=== PATIENT | male | born 1960 | race Caucasian/White ===

== ENCOUNTER → 2019-10-15 08:48 | Outpatient (CLI) | payer OTHER, SELFPAY ==
[2019-10-15 10:12] LABS: Erythrocyte Sedimentation Rate 14 mm/hr (0-20)
[2019-10-15 10:14] LABS: Absolute Lymphocyte Count 1.37 X10^3/uL (0.83-4.51); Absolute Neutrophil Count 6.2 X10^3/uL (2.0-7.7); Basophil% 1.2 % (0-1); Eosinophil# 0.02 X10^3/uL; Eosinophils% 0.2 % (0-5); Hematocrit 45.6 % (40-54); Hemoglobin 14.8 g/dL (13.0-16.5); Lymphocyte # 1.37 X10^3/ul (4.0); Lymphocyte % 15.8 % (19-41); Mean Corp Hgb Conc 32.5 g/dL (32-36); Mean Corpuscular Hgb 30.8 pg (27.0-32.0); Mean Corpuscular Volume 94.8 fL (80-94); Mean Platelet Vol. 9.6 fl (6.2-12.0); Monocyte# 0.93 X10^3/uL; Monocyte% 10.7 % (0-10); NRBC Flagged by Analyzer 0 % (0-5); Neutrophil # 6.17 X10^3/uL (2.7-7.7); Neutrophil % 71.2 % (47-70); Platelet Count 313 K/mm3 (150-450); RBC Distribution Width SD 41.7 fl (35.1-43.9); Red Blood Count 4.81 M/mm3 (4.6-6.2); White Blood Count 8.7 K/mm3 (4.4-11.0)
== END ==
PROVIDERS: Referring Provider Physician Assistant; Visit Provider Physician Assistant
DX: S76.011A Strain of muscle, fascia and tendon of right hip, initial encounter (principal); X58.XXXA Exposure to other specified factors, initial encounter; Y93.9 Activity, unspecified; Y92.9 Unspecified place or not applicable; Y99.9 Unspecified external cause status
CPT/HCPCS: 36415; 85025; 85652; 86140

== ENCOUNTER 2019-10-20 13:04 | Emergency (ER) | payer OTHER, SELFPAY ==
[2019-10-20 13:07] VITALS: BP 162/93; PULSE 90; RESP 17; TEMP 36.8; O2SAT 100; BMI 28.0
--- NOTE | 2019-10-20 14:04 | RAD_ITS ---
STUDY: X-RAY - RIGHT SHOULDER REASON FOR EXAM: Male, 59 years old. Shoulder pain. No known history of trauma. TECHNIQUE: 4 view(s) of the shoulder. COMPARISON: None. FINDINGS: Normal glenohumeral articulation. Normal acromioclavicular joint. Normal acromion. Normal humeral head and visualized proximal humerus. The soft tissue structures are unremarkable. Normal visualized pulmonary apex. RAD/Shoulder min 2 Views IMPRESSION: Normal x-ray examination of the shoulder. Electronically Signed: Ambrosio Turpin, at 14:54 EST , Service support ,
--- NOTE | 2019-10-20 14:05 | ED.VIS.GEN ---
History of Present Illness Chief Complaint: Other, Pain/Inj Detail of Chief Complaint: Atraumatic right shoulder pain Informant: Patient, Significant Other Onset: Yesterday Context: Sudden Onset Timing: Continuous Quality: Pain Location: Right shoulder region Current Severity: Mild Maximum Severity: Severe Worsened by: Attempt to remove From head Relieved by: Nothing Associated Symptoms: No associated symptoms Narrative: Patient is a 59-year-old male who presents with atraumatic right shoulder pain. This started abruptly. He does report chills. He denies fever. He denies history of other immune disorder. He has history of osteoarthritis right hip. He is presently on naproxen and tapering dose of prednisone. He denies cardiac or respiratory symptoms. He denies paresthesia, anesthesia or motor weakness. Patient denies prior injury right shoulder. Prior similar symptoms: No Recent Illness/Hospitalization: Yes - Right hip pain - Past Medical History (1) Osteoarthritis of right hip Status: Acute Past Medical History - Allergies and Home Meds Allergies/Adverse Reactions: Allergies No Known Allergies Allergy (Verified 10/20/19 13:06) Primary Care Physician: Care Physician,No Primary [NON-STAFF] - Past Medical History: - - Osteoarthritis Surgical History: noncontributory Lives: Spouse/ Significant Other Smoking Status: Former smoker Alcohol: None Drugs: None Review of Systems General: Reports: Chills, Fever, Subjective, Sweats. Denies: Malaise Eyes: Denies: Visual changes - bilaterally, Blurred Vision - bilaterally ENT: Denies: Rhinorrhea, Sore throat Cardiovascular: Denies: Chest pain, Palpitations Respiratory: Denies: Dyspnea, Cough, Dyspnea on exertion Gastrointestinal: Denies: Abdominal pain, Nausea, Vomiting, Diarrhea, Melena, Hematochezia Musculoskeletal: Reports: Extremity Pain. Denies: Myalgias, Neck pain, Back pain, Swelling Neurological: Denies: Weakness, Parasthesia, Numbness Physical Exam Vital Signs/Narrative: Vital Signs Temp Pulse Resp BP Pulse Ox 10/20/19 13:07 98.3 F 90 17 162/93 H 100 Inital Vital Signs reviewed: Yes General: Well nourished, Well developed, Acute Distress Head: Normocephalic, Atraumatic. Negative for: Trauma, Tenderness Eyes: Perrl, EOMI. Negative for: Pale conjunctiva, Scleral icterus ENT: Moist mucous membranes, No rhinorrhea Neck: Supple, Nontender, No lymphadenopathy, No JVD Cardiovascular: Regular rate, Regular rhythm, No murmurs, Normal S1, Normal S2 Respiratory: No distress, CTA bilaterally, Chest nontender Back: Nontender, Normal Inspection. Negative for: CVA tenderness, Spinal tenderness Extremities: Nontender, No edema Skin: Normal color, No rash. Negative for: Cyanosis, Diaphoresis, Jaundice, No Trauma Neurological: Alert, Oriented x3, Cranial nerves II-XII grossly intact, Normal Strength, Normal Sensation Psychological: Normal affect, Normal Mood Diagnostic/Tx/Re-eval Chest X-Ray - ED: Read by ED Physician, - - Three-view x-ray of the right shoulder was obtained and interpreted by me as negative. There is no evidence of calcification of the supra spinatus tendon. There is no osteoarthritic changes. There is no subluxation, dislocation or osseous acute abnormalities. - Medical Decision Making Patient has limited range of motion of his right upper extremity at the shoulder. He has pain with passive abduction past 60 degrees. Axillary, median, radial and ulnar function intact. There is no pain the patient over the lateral medial epicondyle, olecranon process radial head. Is no pain the patient of the distal radius or ulna. There is no pain the patient with carpal bones, metacarpal bones or phalanges. Capillary refill is normal. Sensations intact. Radial pulses palpable. X-ray was obtained to assess for arthritis versus calcification of the supraspinatus tendon versus other causes. He was medicated with Naprosyn and [place]. ED Disposition - Plan for ED Patient: Disposition: Home or Assisted Living Diagnosis: Impingement syndrome of right shoulder region Instructions: Shoulder Impingement Syndrome Prescriptions: Naproxen [Naprosyn] 500 mg PO BID #14 tab Prescription Printed Referrals: Care Physician,No Primary [NON-STAFF] -
[2019-10-20] MEDS: Naproxen 500 MG Tablet PO (14:18)
[2019-10-20] MEDS: HYDROcodone Bitartrate/Apap 5/325 Tablet PO (14:18)
[2019-10-20 15:37] VITALS: BP 127/82; PULSE 68; RESP 16; O2SAT 98
== END 2019-10-20 15:38 | disposition home or self-care (01) ==
PROVIDERS: Emergency Provider Emergency Medicine; Family Provider Family Medicine; PCP Family Medicine
DX: M75.41 Impingement syndrome of right shoulder (principal); M16.11 Unilateral primary osteoarthritis, right hip; Z79.1 Long term (current) use of non-steroidal anti-inflammatories (NSAID); Z87.891 Personal history of nicotine dependence
CPT/HCPCS: 73030; 99284